=== PATIENT | male | born 1995 | race African-American/Black ===

== ENCOUNTER 2017-01-07 03:01 | Emergency (ER) | payer MEDICAID ==
[~2017-01-07] VITALS: Ht 175.3 cm; Wt 95.3 kg
[2017-01-07] MEDS ORDERED: IBUPROFEN600 MG ORAL (03:31)
[2017-01-07] MEDS ORDERED: GABAPENTIN100 MG ORAL (03:31)
[2017-01-07] MEDS ORDERED: PERCOCET 10-321 EACH ORAL (03:31)
[2017-01-07] MEDS ORDERED: TYLENOL ARTHRITIS PO (03:31)
[2017-01-07] MEDS ORDERED: NAPROSYN500 M1 ORAL (03:31)
[2017-01-07] MEDS ORDERED: TRAMADOL HCL50 MG ORAL (03:31)
[2017-01-07] MEDS ORDERED: TORADOL60 MG/2 ML IM (03:31)
[2017-01-07] MEDS ORDERED: CYCLOBENZAPRINE10 MG ORAL (03:31)
[2017-01-07] MEDS ORDERED: NORCO 5-325 TA1 EACH ORAL (03:31)
[2017-01-07] MEDS ORDERED: ROBAXIN-750750 MG PO (03:31)
[2017-01-07] MEDS ORDERED: PROAIR HFA8.5 GM INH (03:31)
[2017-01-07] MEDS ORDERED: Albuterol ud Inhalation HHN ONE (03:45)
[2017-01-07] MEDS ORDERED: Ipratropium 0.02% Inh Soln 2.5ml UD HHN ONE (03:45)
[2017-01-07] MEDS ORDERED: PredniSONE 20mg tab ORAL ONE (03:45)
[2017-01-07 04:15] VITALS: BP 121/71
[2017-01-07] MEDS ORDERED: PREDNISONE20 MG ORAL (04:28)
[2017-01-07] MEDS ORDERED: EYE DROP TEARS15 ML BOTH EYES (04:28)
[2017-01-07 04:35] VITALS: BP 121/71
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
== END 2017-01-07 04:35 | disposition home or self-care (01) ==
LOC: EMR 04:18
DX: T59.3X1A Toxic effect of lacrimogenic gas, accidental (unintentional), initial encounter (principal); J45.909 Unspecified asthma, uncomplicated; X58.XXXA Exposure to other specified factors, initial encounter; Y92.9 Unspecified place or not applicable; Y99.8 Other external cause status
CPT/HCPCS: 94640; 99284

== ENCOUNTER 2017-05-12 01:54 | Emergency (ER) | payer SELFPAY ==
[~2017-05-12] VITALS: Ht 175.3 cm; Wt 99.8 kg
[~2017-05-12 01:54] MED LIST: CYCLOBENZAPRINE10 MG ORAL; EYE DROP TEARS15 ML BOTH EYES; GABAPENTIN100 MG ORAL; IBUPROFEN600 MG ORAL; NAPROSYN500 M1 ORAL; NORCO 5-325 TA1 EACH ORAL; PERCOCET 10-321 EACH ORAL; PREDNISONE20 MG ORAL; PROAIR HFA8.5 GM INH; ROBAXIN-750750 MG PO; TORADOL60 MG/2 ML IM; TRAMADOL HCL50 MG ORAL; TYLENOL ARTHRITIS PO
[2017-05-12 02:06] VITALS: BP 164/89
[2017-05-12] MEDS ORDERED: IBUPROFEN600 MG ORAL (02:20)
--- NOTE | 2017-05-12 02:21 | Emergency Room Report ---
History of Present Illness General Chief Complaint: Chest Pain Source: Patient Present Illness HPI A 21-year-old male who presents with chief complaint of chest pain. He said his been ongoing for 3 weeks. Said he R. he saw Denies any fever chills denies any nausea vomiting. Nothing made it better nothing made it worse. Denies any other complaint. Allergies: Coded Allergies: No Known Allergies (Unverified , 01/07/17) Patient History Past Medical History: see triage record, old chart reviewed Past Surgical History: other Pertinent Family History: none Social History: Denies: smoking Immunizations: other Reviewed Nursing Documentation: PMH: Agreed, PSxH: Agreed Nursing Documentation-PMH Past Medical History: No History, Except For Hx Asthma: Yes Review of Systems Eye: Denies: blurred vision, eye pain ENT: Denies: ear pain, nose congestion, throat swelling Respiratory: Denies: cough, shortness of breath Cardiovascular: Reports: chest pain, Denies: palpitations Gastrointestinal: Denies: abdominal pain, diarrhea, nausea, vomiting Musculoskeletal: Denies: back pain, joint pain Skin: Denies: rash Neurological: Denies: headache, numbness Endocrine: Denies: increased thirst, increased urine Hematologic/Lymphatic: Denies: easy bruising All Other Systems: negative except mentioned in HPI Physical Exam Vital Signs Date Time Temp Pulse Resp B/P Pulse Ox O2 Delivery O2 Flow Rate FiO2 05/12/17 02:00 97.9 73 16 164/89 100 Room Air vitals unremarkable Sp02 EP Interpretation: reviewed, normal General Appearance: well appearing, no apparent distress, alert, other - Patient is sitting laughing And talking on phone. Head: normocephalic, atraumatic Eyes: bilateral eye EOMI, bilateral eye PERRL ENT: hearing grossly normal, normal pharynx Neck: full range of motion, supple, no meningismus Respiratory: chest non-tender, lungs clear, normal breath sounds Cardiovascular #1: regular rate, rhythm, no murmur Gastrointestinal: normal bowel sounds, non tender, no mass, no organomegaly, no bruit, non-distended Musculoskeletal: back normal, gait/station normal, normal range of motion Psychiatric: mood/affect normal Skin: warm/dry Medical Decision Making Diagnostic Impression: Primary Impression: Chest pain Qualified Codes: R07.9 - Chest pain, unspecified ER Course present with noncardiac chest pain. I see no evidence of ACS, PE, dissection, pneumonia to name a few. Clinically he stable. I see no need for EKG. Last Vital Signs Date Time Temp Pulse Resp B/P Pulse Ox O2 Delivery O2 Flow Rate FiO2 05/12/17 02:00 97.9 73 16 164/89 100 Room Air Status: unchanged Disposition: HOME, SELF-CARE Condition: Stable Scripts Ibuprofen* (MOTRIN*) 600 Mg Tablet 600 MG ORAL Q8H Y for For Pain, #30 TAB 0 Refills Prov: DAYSI RIVAS M.D. 05/12/17 Patient Instructions: Nonspecific Chest Pain Additional Instructions: Followup with your Dr. in 7 days. Return if symptom worsen. DAYSI RIVAS M.D. May 12, 2017 02:21
[2017-05-12 02:37] VITALS: BP 164/89
== END 2017-05-12 02:37 | disposition home or self-care (01) ==
LOC: EMR 02:34
DX: R07.89 Other chest pain (principal); J45.909 Unspecified asthma, uncomplicated
CPT/HCPCS: 99283

== ENCOUNTER 2018-06-18 15:35 | Inpatient (IN) | payer MEDICAID, OTHER ==
[~2018-06-18] VITALS: Ht 177.8 cm; Wt 97.7 kg
[2018-06-18 16:15] VITALS: BP 128/71
[2018-06-18] MEDS ORDERED: Sodium Chloride 500ML 500 ML IV ONE (16:16)
[2018-06-18] MEDS ORDERED: Morphine Sulfate 4mg/ml Inj (IV USE ONLY) IVP ONE (16:30)
[2018-06-18 18:00] VITALS: BP 144/83
[2018-06-18 18:13] LABS: BASOPHILS % (AUTO) 0.6 % (0.0-2.0); EOSINOPHILS % (AUTO) 1.8 % (0.0-3.0); HEMATOCRIT 33.4 % (42.0-52.0); LYMPHOCYTES % (AUTO) 30.3 % (20.0-45.0); MEAN CORPUSCULAR VOLUME 77 FL (80-99); MONOCYTES % (AUTO) 12.5 % (1.0-10.0); NEUTROPHILS % (AUTO) 54.9 % (45.0-75.0); PLATELET COUNT 284 K/UL (150-450); RED BLOOD COUNT 4.35 M/UL (4.70-6.10); RED CELL DISTRIBUTION WIDTH 17.3 % (11.6-14.8); WHITE BLOOD COUNT 4.1 K/UL (4.8-10.8)
[2018-06-18 18:35] LABS: ANION GAP 8 mmol/L (5-15); BLOOD UREA NITROGEN 12 mg/dL (7-18); CALCIUM 8.9 MG/DL (8.5-10.1); CARBON DIOXIDE 28 MMOL/L (21-32); CHLORIDE 106 MMOL/L (98-107); POTASSIUM 3.5 MMOL/L (3.5-5.1); SODIUM 142 MMOL/L (136-145)
[2018-06-18 18:50] LABS: ALANINE AMINOTRANSFERASE 157 U/L (12-78); ALBUMIN 3.5 G/DL (3.4-5.0); ALKALINE PHOSPHATASE 82 U/L (46-116); ASPARTATE AMINO TRANSFERASE 86 U/L (15-37); BILIRUBIN,TOTAL 0.3 MG/DL (0.2-1.0); CKMB < 0.5 NG/ML (0.0-3.6); CREATINE KINASE 136 U/L (26-308)
[2018-06-18] MEDS ORDERED: HUMIRA40 MG/0.2 SUBQ (19:23)
[2018-06-18] MEDS ORDERED: DIPHENHYDRAMINE25 M1 ORAL (19:23)
[2018-06-18] MEDS ORDERED: MORPHINE IR15 MG ORAL (19:23)
[2018-06-18] MEDS ORDERED: COLCRYS0.6 M1 PO (19:23)
[2018-06-18] MEDS ORDERED: DIAZEPAM5 MG ORAL (19:23)
[2018-06-18] MEDS ORDERED: ZETIA10 MG ORAL (19:23)
[2018-06-18] MEDS ORDERED: ZOFRAN4 M3 ORAL (19:23)
[2018-06-18] MEDS ORDERED: PREDNISONE50 MG ORAL (19:23)
[2018-06-18] MEDS ORDERED: WARFARIN SODIUM4 MG ORAL (19:23)
[2018-06-18] MEDS ORDERED: METOPROLOL TART25 MG ORAL (19:23)
[2018-06-18] MEDS ORDERED: RANEXA500 MG ORAL (19:23)
[2018-06-18] MEDS ORDERED: CYCLOBENZAPRINE10 MG ORAL (19:23)
[2018-06-18] MEDS ORDERED: GABAPENTIN800 MG ORAL (19:23)
[2018-06-18] MEDS ORDERED: PROAIR HFA8.5 GM INH (19:23)
[2018-06-18] MEDS ORDERED: TRAZODONE HCL50 MG ORAL (19:23)
[2018-06-18] MEDS ORDERED: MELOXICAM15 MG PO (19:23)
[2018-06-18] MEDS ORDERED: FERROUS SULFAT325 MG ORAL (19:23)
[2018-06-18] MEDS ORDERED: PANTOPRAZOLE SO40 MG ORAL (19:23)
[2018-06-18] MEDS ORDERED: DOCUSATE SODIU100 MG ORAL (19:23)
[2018-06-18] MEDS ORDERED: NOVOLIN R100 UNIT/1 SUBQ (19:23)
[2018-06-18] MEDS ORDERED: DEPAKOTE ER500 MG ORAL (19:23)
[2018-06-18] MEDS ORDERED: CARAFATE1 G1 ORAL (19:23)
[2018-06-18] MEDS ORDERED: POLYETHYLENE GL17 GM ORAL (19:23)
[2018-06-18] MEDS ORDERED: ZYPREXA2.5 MG ORAL (19:23)
[2018-06-18] MEDS ORDERED: ATORVASTATIN CA40 MG ORAL (19:23)
[2018-06-18] MEDS ORDERED: ACETAMINOPHEN-1 EAC1 ORAL (19:23)
[2018-06-18] MEDS ORDERED: METFORMIN HCL500 M1 ORAL (19:23)
[2018-06-18] MEDS ORDERED: Miralax 17gm pkt ORAL PRN (19:30)
[2018-06-18] MEDS ORDERED: Nitroglycerin Subl 0.4mg tab SL PRN (19:30)
[2018-06-18] MEDS ORDERED: Enalaprilat 2.5mg/2ml Inj IV PRN (19:30)
[2018-06-18] MEDS ORDERED: TraZODone 50mg tab ORAL PRN (19:30)
[2018-06-18] MEDS ORDERED: Albuterol/Ipratropium 3ml neb HHN PRN (19:30)
[2018-06-18] MEDS ORDERED: OLANZapine 2.5mg tab ORAL PRN ×2 (19:30→19:40)
[2018-06-18] MEDS ORDERED: Ketorolac 30mg Inj IV PRN (19:30)
[2018-06-18] MEDS ORDERED: dilTIAZem HCl 25mg/5ml Inj IV PRN (19:30)
[2018-06-18 19:50] VITALS: BP 140/82
[2018-06-18 20:38] VITALS: BP 146/106
--- NOTE | 2018-06-18 20:42 | Emergency Room Report ---
History of Present Illness General Chief Complaint: Chest Pain Source: Patient Present Illness HPI 35-year-old male presents ED complaining of chest pain. Started this morning. Left-sided, throbbing, nonradiating. Denies shortness of breath. States he's been coughing up blood. Has blood in his stool. Notes history of PE and DVT. History of NSTEMI. On Coumadin. Is visiting from [place]. No other aggravating relieving factors. Denies any other associated symptoms Allergies: Coded Allergies: IODINATED CONTRAST- ORAL AND IV DYE (Verified Allergy, Unknown, 06/18/18) Patient History Past Medical History: DM, HTN, asthma Past Surgical History: none Pertinent Family History: none Social History: Denies: smoking, alcohol use, drug use Immunizations: UTD Reviewed Nursing Documentation: PMH: Agreed; PSxH: Agreed Nursing Documentation-PMH Hx Hypertension: Yes Hx Asthma: Yes Hx Diabetes: Yes Review of Systems All Other Systems: negative except mentioned in HPI Physical Exam Vital Signs Date Time Temp Pulse Resp B/P (MAP) Pulse Ox O2 Delivery O2 Flow Rate FiO2 06/18/18 15:45 98.7 82 18 121/63 100 Room Air 98.8 Sp02 EP Interpretation: reviewed, normal General Appearance: no apparent distress, alert, GCS 15, non-toxic Head: normocephalic, atraumatic Eyes: bilateral eye normal inspection, bilateral eye PERRL ENT: hearing grossly normal, normal pharynx, no angioedema, normal voice Neck: full range of motion, supple/symm/no masses Respiratory: chest non-tender, lungs clear, normal breath sounds, speaking full sentences Cardiovascular #1: regular rate, rhythm, no edema Cardiovascular #2: 2+ carotid (R), 2+ carotid (L), 2+ radial (R), 2+ radial (L) , 2+ dorsalis pedis (R), 2+ dorsalis pedis (L) Gastrointestinal: normal bowel sounds, non tender, soft, non-distended, no guarding, no rebound Rectal: deferred Genitourinary: normal inspection, no CVA tenderness Musculoskeletal: back normal, gait/station normal, normal range of motion, non- tender Neurologic: alert, oriented x3, responsive, motor strength/tone normal, sensory intact, speech normal Psychiatric: judgement/insight normal, memory normal, mood/affect normal, no suicidal/homicidal ideation Reflexes: 3+ bicep (R), 3+ bicep (L), 3+ tricep (R), 3+ tricep (L), 3+ knee (R) , 3+ knee (L) Skin: normal color, no rash, warm/dry, well hydrated Lymphatic: no adenopathy Medical Decision Making Diagnostic Impression: Primary Impression: ACS (acute coronary syndrome) Additional Impressions: Hemoptysis LGI bleed ER Course Hospital Course 35-year-old male presents ED complaining of chest pain. h/o DVT. h/o PE Differential diagnoses include: PA/unstable angina, contusion, muscle strain, PTX, rib fracture Clinical course Patient placed on stretcher. on want ad receiver. After initial history and physical I ordered labs, EKG, chest x-ray, morphine labs reviewed- no leukocytosis, hb/hct stable, electrolytes ok, ddimer ok, trop negative, coags ok EKG - NSR, no acute ischemic changes interpreted by me Chest x-ray- no acute process Given presentation and significant cardiac risk factors patient will be admitted Case discussed with Dr. Fisher and he agreed to accept the patient to his service for further care and support I. I feel this is a highly complex case requiring extensive working including EKG/Rhythm strip, Xray/CT/US, Blood/urine lab work, repeat exams while in ED, and administration of strong opiates/narcotics for pain control, admission to hospital or close patient follow up. Diagnosis - ACS, hemoptysis, LGIB admitted to telemetry in serious condition Labs Test 06/18/18 17:50 White Blood Count 4.1 K/UL (4.8-10.8) Red Blood Count 4.35 M/UL (4.70-6.10) Hemoglobin 11.0 G/DL (14.2-18.0) Hematocrit 33.4 % (42.0-52.0) Mean Corpuscular Volume 77 FL (80-99) Mean Corpuscular Hemoglobin 25.2 PG (27.0-31.0) Mean Corpuscular Hemoglobin Concent 32.8 G/DL (32.0-36.0) Red Cell Distribution Width 17.3 % (11.6-14.8) Platelet Count 284 K/UL (150-450) Mean Platelet Volume 5.6 FL (6.5-10.1) Neutrophils (%) (Auto) 54.9 % (45.0-75.0) Lymphocytes (%) (Auto) 30.3 % (20.0-45.0) Monocytes (%) (Auto) 12.5 % (1.0-10.0) Eosinophils (%) (Auto) 1.8 % (0.0-3.0) Basophils (%) (Auto) 0.6 % (0.0-2.0) Prothrombin Time 10.7 SEC (9.30-11.50) Prothromb Time International Ratio 1.0 (0.9-1.1) Activated Partial Thromboplast Time 26 SEC (23-33) D-Dimer 0.35 mg/L FEU (0.00-0.49) Sodium Level 142 MMOL/L (136-145) Potassium Level 3.5 MMOL/L (3.5-5.1) Chloride Level 106 MMOL/L (98-107) Carbon Dioxide Level 28 MMOL/L (21-32) Anion Gap 8 mmol/L (5-15) Blood Urea Nitrogen 12 mg/dL (7-18) Creatinine 1.0 MG/DL (0.55-1.30) Estimat Glomerular Filtration Rate > 60 mL/min (>60) Glucose Level 128 MG/DL (74-106) Calcium Level 8.9 MG/DL (8.5-10.1) Total Bilirubin 0.3 MG/DL (0.2-1.0) Aspartate Amino Transf (AST/SGOT) 86 U/L (15-37) Alanine Aminotransferase (ALT/SGPT) 157 U/L (12-78) Alkaline Phosphatase 82 U/L (46-116) Total Creatine Kinase 136 U/L (26-308) Creatine Kinase MB < 0.5 NG/ML (0.0-3.6) Creatine Kinase MB Relative Index 0.3 Troponin I 0.000 ng/mL (0.000-0.056) Pro-B-Type Natriuretic Peptide 35 pg/mL (0-125) Total Protein 7.1 G/DL (6.4-8.2) Albumin 3.5 G/DL (3.4-5.0) Globulin 3.6 g/dL Albumin/Globulin Ratio 1.0 (1.0-2.7) EKG Diagnostic Results Rate: normal Rhythm: NSR ST Segments: no acute changes ASA given to the pt in ED: Yes Rhythm Strip Diag. Results EP Interpretation: yes Rhythm: NSR, no PVC's, no ectopy Chest X-Ray Diagnostic Results Chest X-Ray Diagnostic Results : Chest X-Ray Ordered: Yes # of Views/Limited/Complete: 1 View Indication: Chest Pain EP Interpretation: Yes Interpretation: no consolidation, no effusion, no pneumothorax, no acute cardiopulmonary disease Impression: No acute disease Electronically Signed by: Electronically signed by Felipe Miller MD Last Vital Signs Date Time Temp Pulse Resp B/P (MAP) Pulse Ox O2 Delivery O2 Flow Rate FiO2 06/18/18 18:00 98.8 99 20 144/83 100 Room Air 98.8 Status: improved Disposition: ADMITTED INPATIENT Condition: Serious Referrals: NON PHYSICIAN (PCP) Felipe Miller MD Jun 18, 2018 20:42
[2018-06-18] MEDS: NovoLOG Insulin Flexpen SUBQ SCH (20:47)
[2018-06-18 21:00] VITALS: BP 146/106
[2018-06-18] MEDS ORDERED: Depakote ER 500mg tab ORAL SCH (21:00)
[2018-06-18] MEDS: Morphine Sulfate 2mg/ml Inj IVP PRN (21:49)
[2018-06-18] MEDS: Heparin 5000 units/ml inj SUBQ SCH (22:00)
[2018-06-19 00:10] VITALS: BP 142/93
[2018-06-19 04:00] VITALS: BP 107/55
[2018-06-19] MEDS: Morphine Sulfate 2mg/ml Inj IVP PRN ×2 (04:28→08:51)
[2018-06-19] MEDS: NovoLOG Insulin Flexpen SUBQ SCH ×2 (06:07→11:34)
[2018-06-19] MEDS: Heparin 5000 units/ml inj SUBQ SCH (06:25)
[2018-06-19 07:37] LABS: HEMATOCRIT 34.4 % (42.0-52.0); MEAN CORPUSCULAR VOLUME 77 FL (80-99); PLATELET COUNT 256 K/UL (150-450); RED BLOOD COUNT 4.47 M/UL (4.70-6.10); RED CELL DISTRIBUTION WIDTH 16.9 % (11.6-14.8); WHITE BLOOD COUNT 3.2 K/UL (4.8-10.8)
[2018-06-19 07:46] LABS: INR 1.1 (0.9-1.1)
[2018-06-19 08:11] LABS: CHOLESTEROL 112 MG/DL (< 200); HDL CHOLESTEROL 34 MG/DL (40-60); TRIGLYCERIDES 68 MG/DL (30-150)
--- NOTE | 2018-06-19 08:30 | Diagnostic Imaging Report ---
Indication: Chest pain Technique: One view of the chest Comparison: none Findings: The heart is upper limits normal in size. Lungs and pleural spaces are clear. Impression: No acute process
[2018-06-19 08:47] VITALS: BP 133/80
[2018-06-19 08:48] VITALS: BP 133/80
[2018-06-19] MEDS: Cyclobenzaprine 10mg Tab ORAL SCH ×2 (08:50→09:20)
[2018-06-19] MEDS ORDERED: Sucralfate 1gm tab ORAL SCH (09:00)
[2018-06-19] MEDS ORDERED: Aspirin Baby 81mg ORAL SCH (09:00)
[2018-06-19] MEDS ORDERED: Atorvastatin 20mg tab ORAL SCH (09:00)
[2018-06-19] MEDS ORDERED: Warfarin Sodium 4mg ORAL SCH (09:00)
[2018-06-19] MEDS ORDERED: Metoprolol 25mg tab ORAL SCH (09:00)
[2018-06-19] MEDS ORDERED: Tylenol #3 tab (300mg/30mg) ORAL PRN (11:00)
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
[2018-06-19] MEDS ORDERED: LORazepam 1mg tab ORAL PRN (12:00)
--- NOTE | 2018-06-19 12:06 | Consultation ---
History of Present Illness General Date patient seen: Jun 19, 2018 Chief Complaint: Chest Pain Present Illness HPI 23 year old male with hx of ID, s/p angioplasty without Stent, on Coumadin for DVt, the pt has hx of bipolar d/o he is splitting staff. agitated. Allergies: Coded Allergies: IODINATED CONTRAST- ORAL AND IV DYE (Verified Allergy, Unknown, 06/18/18) Medication History Scheduled Adalimumab (Humira), 40 MG SUBQ Q14D, (Reported) Atorvastatin Calcium* (Atorvastatin Calcium*), 40 MG ORAL DAILY, (Reported) Colchicine (Colcrys), 0.6 MG PO TID, (Reported) Cyclobenzaprine Hcl* (Flexeril*), 10 MG ORAL THREE TIMES A DAY, (Reported) Ezetimibe (Zetia*), 10 MG ORAL DAILY, (Reported) Ferrous Sulfate* (Ferrous Sulfate*), 325 MG ORAL TWICE A DAY, (Reported) Gabapentin* (Gabapentin*), 800 MG ORAL BID, (Reported) Insulin Regular, Human* (Novolin R*), 0 SUBQ .SLIDING SCALE, (Reported) Meloxicam* (Meloxicam*), 15 MG PO BID, (Reported) Metformin Hcl* (Metformin Hcl*), 250 MG ORAL DAILY, (Reported) Metoprolol Tartrate* (Metoprolol Tartrate*), 25 MG ORAL BID, (Reported) Pantoprazole* (Pantoprazole*), 40 MG ORAL DAILY, (Reported) Prednisone* (Prednisone*), 50 MG ORAL BID, (Reported) Ranolazine* (Ranexa*), 500 MG ORAL EVERY 8 HOURS, (Reported) Sucralfate* (Carafate*), 1 GM ORAL BID, (Reported) Warfarin Sod* (Warfarin Sod*), 4 MG ORAL DAILY, (Reported) Scheduled PRN Acetaminophen With Codeine (T#3) (Tylenol #3 Tab*), 1 TAB ORAL Q6H PRN for Breakthrough Pain, (Reported) Albuterol Sulfate* (Proair Hfa*), 1 PUFF INH Q4HR PRN for Shortness of Breath, ( Reported) Diazepam* (Diazepam*), 5 MG ORAL Q8H PRN for ANXIETY, (Reported) Diphenhydramine Hcl* (Diphenhydramine Hcl*), 25 MG ORAL QHS PRN for INSOMNIA , ( Reported) Divalproex Sodium* (Depakote Er*), 500 MG ORAL QHS PRN for INSOMNIA, (Reported) Docusate Sodium* (Docusate Sodium*), 100 MG ORAL TWICE A DAY PRN for Constipation, (Reported) Morphine HCl (Morphine Sulfate ER), 15 MG ORAL Q4HR PRN for For Pain, (Reported) Olanzapine* (Zyprexa*), 2.5 MG ORAL QHS PRN for INSOMNIA, (Reported) Ondansetron* (Zofran*), 4 MG ORAL Q6H PRN for Nausea & Vomiting, (Reported) Polyethylene Glycol 3350* (Polyethylene Glycol 3350*), 17 GM ORAL DAILY PRN for Constipation, (Reported) Trazodone Hcl* (Desyrel*), 50 MG ORAL BEDTIME PRN for INSOMNIA, (Reported) Patient History Healthcare decision maker Resuscitation status Full Code Advanced Directive on File Physical Exam Last 24 Hour Vital Signs Date Time Temp Pulse Resp B/P (MAP) Pulse Ox O2 Delivery O2 Flow Rate FiO2 06/19/18 09:51 Room Air 06/19/18 09:50 98.0 06/19/18 09:47 21 06/19/18 09:20 98.0 06/19/18 09:20 98.0 06/19/18 08:51 98.0 06/19/18 08:50 98.0 06/19/18 08:48 104 133/80 06/19/18 08:47 98.0 104 18 133/80 (97) 96 98.0 06/19/18 05:30 21 06/19/18 04:00 30 06/19/18 04:00 73 06/19/18 04:00 97.5 74 20 107/55 (72) 98 97.5 06/19/18 03:30 80 18 97 Facial 30 06/19/18 00:30 84 20 98 Facial 30 06/19/18 00:10 97.9 114 20 142/93 (109) 98 97.9 06/19/18 00:00 30 06/18/18 22:20 Room Air 06/18/18 21:00 97.7 101 23 146/106 (119) 96 97.7 06/18/18 20:38 97.7 127 18 146/106 (119) 98 97.7 06/18/18 20:21 107 06/18/18 19:50 99.1 99 19 140/82 100 Room Air 99.1 06/18/18 19:50 99.1 99 19 140/82 100 06/18/18 18:00 98.8 99 20 144/83 100 Room Air 98.8 06/18/18 16:15 96 19 Room Air 06/18/18 16:15 97.6 96 19 128/71 100 Room Air 97.6 06/18/18 15:45 98.7 82 18 121/63 100 Room Air 98.8 Intake and Output 06/18/18 06/19/18 19:00 07:00 Intake Total 0 ml 780 ml Balance 0 ml 780 ml Intake Oral 0 ml 780 ml # Voids 2 Laboratory Tests Test 06/18/18 17:50 06/19/18 07:10 White Blood Count 4.1 K/UL (4.8-10.8) L 3.2 K/UL (4.8-10.8) L Red Blood Count 4.35 M/UL (4.70-6.10) L 4.47 M/UL (4.70-6.10) L Hemoglobin 11.0 G/DL (14.2-18.0) L 11.0 G/DL (14.2-18.0) L Hematocrit 33.4 % (42.0-52.0) L 34.4 % (42.0-52.0) L Mean Corpuscular Volume 77 FL (80-99) L 77 FL (80-99) L Mean Corpuscular Hemoglobin 25.2 PG (27.0-31.0) L 24.5 PG (27.0-31.0) L Mean Corpuscular Hemoglobin Concent 32.8 G/DL (32.0-36.0) 31.9 G/DL (32.0-36.0) L Red Cell Distribution Width 17.3 % (11.6-14.8) H 16.9 % (11.6-14.8) H Platelet Count 284 K/UL (150-450) 256 K/UL (150-450) Mean Platelet Volume 5.6 FL (6.5-10.1) L 5.2 FL (6.5-10.1) L Neutrophils (%) (Auto) 54.9 % (45.0-75.0) % (45.0-75.0) Lymphocytes (%) (Auto) 30.3 % (20.0-45.0) % (20.0-45.0) Monocytes (%) (Auto) 12.5 % (1.0-10.0) H % (1.0-10.0) Eosinophils (%) (Auto) 1.8 % (0.0-3.0) % (0.0-3.0) Basophils (%) (Auto) 0.6 % (0.0-2.0) % (0.0-2.0) Prothrombin Time 10.7 SEC (9.30-11.50) 11.1 SEC (9.30-11.50) Prothromb Time International Ratio 1.0 (0.9-1.1) 1.1 (0.9-1.1) Activated Partial Thromboplast Time 26 SEC (23-33) 31 SEC (23-33) D-Dimer 0.35 mg/L FEU (0.00-0.49) Sodium Level 142 MMOL/L (136-145) Potassium Level 3.5 MMOL/L (3.5-5.1) Chloride Level 106 MMOL/L (98-107) Carbon Dioxide Level 28 MMOL/L (21-32) Anion Gap 8 mmol/L (5-15) Blood Urea Nitrogen 12 mg/dL (7-18) Creatinine 1.0 MG/DL (0.55-1.30) Estimat Glomerular Filtration Rate > 60 mL/min (>60) Glucose Level 128 MG/DL (74-106) H Calcium Level 8.9 MG/DL (8.5-10.1) Total Bilirubin 0.3 MG/DL (0.2-1.0) Aspartate Amino Transf (AST/SGOT) 86 U/L (15-37) H Alanine Aminotransferase (ALT/SGPT) 157 U/L (12-78) H Alkaline Phosphatase 82 U/L (46-116) Total Creatine Kinase 136 U/L (26-308) Creatine Kinase MB < 0.5 NG/ML (0.0-3.6) Creatine Kinase MB Relative Index 0.3 Troponin I 0.000 ng/mL (0.000-0.056) 0.007 ng/mL (0.000-0.056) Pro-B-Type Natriuretic Peptide 35 pg/mL (0-125) Total Protein 7.1 G/DL (6.4-8.2) Albumin 3.5 G/DL (3.4-5.0) Globulin 3.6 g/dL Albumin/Globulin Ratio 1.0 (1.0-2.7) Differential Total Cells Counted 100 Neutrophils % (Manual) 42 % (45-75) L Lymphocytes % (Manual) 38 % (20-45) Monocytes % (Manual) 18 % (1-10) H Eosinophils % (Manual) 2 % (0-3) Basophils % (Manual) 0 % (0-2) Band Neutrophils 0 % (0-8) Platelet Estimate Adequate Platelet Morphology Normal Anisocytosis 1+ Microcytosis 1+ C-Reactive Protein, Quantitative 3.5 mg/dL (0.00-0.90) H Triglycerides Level 68 MG/DL (30-150) Cholesterol Level 112 MG/DL (< 200) LDL Cholesterol 62 mg/dL (<100) HDL Cholesterol 34 MG/DL (40-60) L Cholesterol/HDL Ratio 3.3 (3.3-4.4) Thyroid Stimulating Hormone (TSH) 0.604 uiU/mL (0.358-3.740) Height (Feet): 5 Height (Inches): 10.00 Weight (Pounds): 215 Medications Current Medications Medications (Trade) Dose Ordered Sig/Gael Route PRN Reason Start Time Stop Time Status Last Admin Dose Admin Acetaminophen (Tylenol) 650 mg Q4H PRN ORAL FEVER 06/18/18 19:30 07/18/18 19:29 Acetaminophen/ Codeine Phosphate (Tylenol #3) 1 tab Q6H PRN ORAL Breakthrough Pain 06/19/18 11:00 06/26/18 10:59 Albuterol/ Ipratropium (Albuterol/ Ipratropium) 3 ml Q4H PRN HHN Shortness of Breath 06/18/18 19:30 06/23/18 19:29 Atorvastatin Calcium (Lipitor) 40 mg DAILY ORAL 06/19/18 09:00 07/19/18 08:59 06/19/18 08:48 Colchicine (Colchicine) 0.6 mg TID ORAL 06/19/18 09:00 07/19/18 08:59 06/19/18 08:48 Cyclobenzaprine HCl (Flexeril) 10 mg THREE TIMES A DAY ORAL 06/19/18 09:00 07/19/18 08:59 06/19/18 09:20 Dextrose (Dextrose 50%) 25 ml PRN IV Hypoglycemia 06/18/18 19:45 07/18/18 19:44 Dextrose (Dextrose 50%) 50 ml PRN IV hypoglycemia 06/18/18 19:45 07/18/18 19:44 Diltiazem HCl (Cardizem) 10 mg Q1H PRN IV heart rate more than 120, 06/18/18 19:30 07/18/18 19:29 Divalproex Sodium (Depakote ER) 500 mg QHS ORAL 06/18/18 21:00 07/18/18 20:59 06/18/18 21:48 Enalaprilat (Vasotec) 2.5 mg Q6H PRN IV sbp more than 160 06/18/18 19:30 07/18/18 19:29 EZETIMIBE (Zetia) 10 mg DAILY ORAL 06/19/18 09:00 07/19/18 08:59 06/19/18 08:49 Gabapentin (Neurontin) 800 mg BID ORAL 06/19/18 09:00 07/19/18 08:59 06/19/18 08:49 Insulin Aspart (NovoLOG) BEFORE MEALS AND HS SUBQ 06/18/18 21:00 07/18/18 20:59 06/19/18 11:34 Lorazepam (Ativan) 2 mg Q6H PRN ORAL For Anxiety 06/19/18 12:00 06/26/18 11:59 UNV Metoprolol Tartrate (Lopressor) 25 mg BID ORAL 06/19/18 09:00 07/19/18 08:59 06/19/18 08:48 Nitroglycerin (Ntg) 0.4 mg Q5M PRN SL Prn Chest Pain 06/18/18 19:30 07/18/18 19:29 Olanzapine (ZyPREXA) 2.5 mg QHS PRN ORAL INSOMNIA 06/18/18 19:40 07/18/18 19:29 Ondansetron HCl (Zofran) 4 mg Q6H PRN IVP Nausea & Vomiting 06/18/18 19:30 07/18/18 19:29 06/19/18 04:28 Pantoprazole (Protonix) 40 mg DAILY ORAL 06/19/18 09:00 07/19/18 08:59 06/19/18 08:48 Polyethylene Glycol (Miralax) 17 gm DAILYPRN PRN ORAL Constipation 06/18/18 19:30 07/18/18 19:29 Sucralfate (Carafate) 1 gm BID ORAL 06/19/18 09:00 07/19/18 08:59 06/19/18 08:49 Temazepam (Restoril) 15 mg HSPRN PRN ORAL Insomnia 06/18/18 19:41 06/25/18 19:29 Trazodone HCl (Desyrel) 50 mg BEDTIME PRN ORAL INSOMNIA 06/18/18 19:30 07/18/18 19:29 Ginger Hernandez MD Jun 19, 2018 12:06
[2018-06-19] MEDS ORDERED: Depakote ER 500mg tab ORAL PRN (12:15)
--- NOTE | 2018-06-19 14:19 | GI Initial Consult Note ---
History of Present Illness General Date patient seen: Jun 19, 2018 Time patient seen: 14:00 Reason for Hospitalization: Chest Pain Referring physician: CHRISS CARTER Reason for Consultation: GI BLEED Present Illness HPI 35-year-old male presents ED complaining of chest pain. Started this morning. Left-sided, throbbing, nonradiating. Denies shortness of breath. States he's been coughing up blood. Has blood in his stool. Notes history of PE and DVT. History of NSTEMI. On Coumadin. Is visiting from [place]. No other aggravating relieving factors. Denies any other associated symptoms GI consulted for GI bleed. Pt was seen, awake A&Ox4 NAD ambulating with no active s/sx of N/V/D. States he has had multiple episodes of bloody stools in which he showed me multiple pictures on his phone. Stated he had an episode of hemoptysis and hematemesis as well. Denied any diarrhea. Prior GI history of GERD, multiple duodenal ulcers, ulcerative colitis. Last EGD/colonoscopy was approximately 2 years ago. Presents today with anemia and elevated CRP. Home Meds Active Scripts Acetaminophen* (ACETAMINOPHEN 325MG TABLET*) 325 Mg Tablet, 650 MG ORAL Q4H PRN for 30 Days, TAB Prov:Madan Momin MD 06/19/18 Reported Medications Warfarin Sod* (WARFARIN SOD*) 4 Mg Tablet, 4 MG ORAL DAILY, TAB 0 Refills 06/18/18 Sucralfate* (CARAFATE*) 1 Gm Tablet, 1 GM ORAL BID, TAB 06/18/18 Ranolazine* (RANEXA*) 500 Mg Tab.er.12h, 500 MG ORAL EVERY 8 HOURS, #60 TAB 0 Refills 06/18/18 Prednisone* (PREDNISONE*) 50 Mg Tablet, 50 MG ORAL BID, #10 TAB 0 Refills 06/18/18 Polyethylene Glycol 3350* (POLYETHYLENE GLYCOL 3350*) 17 Gm Powd.pack, 17 GM ORAL DAILY PRN for Constipation, PACKET 06/18/18 Pantoprazole* (PANTOPRAZOLE*) 40 Mg Tablet.dr, 40 MG ORAL DAILY, TAB 06/18/18 Ondansetron* (ZOFRAN*) 4 Mg Tablet, 4 MG ORAL Q6H PRN for Nausea & Vomiting, TAB 06/18/18 Trazodone Hcl* (DESYREL*) 50 Mg Tablet, 50 MG ORAL BEDTIME PRN for INSOMNIA, TAB 06/18/18 Olanzapine* (ZYPREXA*) 2.5 Mg Tablet, 2.5 MG ORAL QHS PRN for INSOMNIA, TAB 0 Refills 06/18/18 Morphine HCl (Morphine Sulfate ER) 15 Mg Tablet.er, 15 MG ORAL Q4HR PRN for For Pain, TAB 06/18/18 Metoprolol Tartrate* (METOPROLOL TARTRATE*) 25 Mg Tablet, 25 MG ORAL BID, TAB 06/18/18 Metformin Hcl* (METFORMIN HCL*) 500 Mg Tablet, 250 MG ORAL DAILY, TAB 06/18/18 Meloxicam* (MELOXICAM*) 15 Mg Tablet, 15 MG PO BID, TAB 06/18/18 Insulin Regular, Human* (NOVOLIN R*) 100 Unit/1 Ml Vial, 0 SUBQ .SLIDING SCALE, UNITS 06/18/18 Gabapentin* (GABAPENTIN*) 800 Mg Tablet, 800 MG ORAL BID, TAB 06/18/18 Ferrous Sulfate* (FERROUS SULFATE*) 325 Mg Tablet, 325 MG ORAL TWICE A DAY, #60 TAB 0 Refills 06/18/18 Ezetimibe (ZETIA*) 10 Mg Tablet, 10 MG ORAL DAILY, TAB 06/18/18 Docusate Sodium* (DOCUSATE SODIUM*) 100 Mg Capsule, 100 MG ORAL TWICE A DAY PRN for Constipation, CAP 06/18/18 Divalproex Sodium* (DEPAKOTE ER*) 500 Mg Tab.er.24h, 500 MG ORAL QHS PRN for INSOMNIA, TAB 4TH CHOICE IF OLANZAPINE IS INEFFECTIVE 06/18/18 Diphenhydramine Hcl* (DIPHENHYDRAMINE HCL*) 25 Mg Capsule, 25 MG ORAL QHS PRN for INSOMNIA , #30 CAP 0 Refills 06/18/18 Diazepam* (DIAZEPAM*) 5 Mg Tablet, 5 MG ORAL Q8H PRN for ANXIETY, #30 TAB 0 Refills 06/18/18 Cyclobenzaprine Hcl* (FLEXERIL*) 10 Mg Tablet, 10 MG ORAL THREE TIMES A DAY, TAB 06/18/18 Colchicine (COLCRYS) 0.6 Mg Tablet, 0.6 MG PO TID, TAB 06/18/18 Atorvastatin Calcium* (ATORVASTATIN CALCIUM*) 40 Mg Tablet, 40 MG ORAL DAILY, TAB 06/18/18 Albuterol Sulfate* (PROAIR HFA*) 8.5 Gm Hfa.aer.ad, 1 PUFF INH Q4HR PRN for Shortness of Breath, #8.5 GM 0 Refills 06/18/18 Adalimumab (HUMIRA) 40 Mg/0.8 Ml Pen.ij.kit, 40 MG SUBQ Q14D, KIT 06/18/18 Acetaminophen With Codeine (T#3) (TYLENOL #3 TAB*) Y Tab, 1 TAB ORAL Q6H PRN for Breakthrough Pain, TAB 06/18/18 Med list reviewed/reconciled: Yes Allergies: Coded Allergies: IODINATED CONTRAST- ORAL AND IV DYE (Verified Allergy, Unknown, 06/18/18) Patient History History Provided By: Patient, Medical Record PMH Narrative Past Medical History: DM, HTN, asthma Past Surgical History: none Pertinent Family History: none Social History: Denies: smoking, alcohol use, drug use Immunizations: UTD Reviewed Nursing Documentation: PMH: Agreed; PSxH: Agreed Nursing Documentation-PMH Hx Hypertension: Yes Hx Asthma: Yes Hx Diabetes: Yes Social History: Denies: smoking, alcohol use, drug use, other Review of Systems All Other Systems: negative except mentioned in HPI Physical Exam Vital Signs Date Time Temp Pulse Resp B/P (MAP) Pulse Ox O2 Delivery O2 Flow Rate FiO2 06/18/18 15:45 98.7 82 18 121/63 100 Room Air 98.8 06/19/18 00:00 30 Sp02 EP Interpretation: reviewed, normal Labs Laboratory Tests Test 06/18/18 17:50 06/19/18 07:10 White Blood Count 4.1 K/UL (4.8-10.8) L 3.2 K/UL (4.8-10.8) L Red Blood Count 4.35 M/UL (4.70-6.10) L 4.47 M/UL (4.70-6.10) L Hemoglobin 11.0 G/DL (14.2-18.0) L 11.0 G/DL (14.2-18.0) L Hematocrit 33.4 % (42.0-52.0) L 34.4 % (42.0-52.0) L Mean Corpuscular Volume 77 FL (80-99) L 77 FL (80-99) L Mean Corpuscular Hemoglobin 25.2 PG (27.0-31.0) L 24.5 PG (27.0-31.0) L Mean Corpuscular Hemoglobin Concent 32.8 G/DL (32.0-36.0) 31.9 G/DL (32.0-36.0) L Red Cell Distribution Width 17.3 % (11.6-14.8) H 16.9 % (11.6-14.8) H Platelet Count 284 K/UL (150-450) 256 K/UL (150-450) Mean Platelet Volume 5.6 FL (6.5-10.1) L 5.2 FL (6.5-10.1) L Neutrophils (%) (Auto) 54.9 % (45.0-75.0) % (45.0-75.0) Lymphocytes (%) (Auto) 30.3 % (20.0-45.0) % (20.0-45.0) Monocytes (%) (Auto) 12.5 % (1.0-10.0) H % (1.0-10.0) Eosinophils (%) (Auto) 1.8 % (0.0-3.0) % (0.0-3.0) Basophils (%) (Auto) 0.6 % (0.0-2.0) % (0.0-2.0) Prothrombin Time 10.7 SEC (9.30-11.50) 11.1 SEC (9.30-11.50) Prothromb Time International Ratio 1.0 (0.9-1.1) 1.1 (0.9-1.1) Activated Partial Thromboplast Time 26 SEC (23-33) 31 SEC (23-33) D-Dimer 0.35 mg/L FEU (0.00-0.49) Sodium Level 142 MMOL/L (136-145) Potassium Level 3.5 MMOL/L (3.5-5.1) Chloride Level 106 MMOL/L (98-107) Carbon Dioxide Level 28 MMOL/L (21-32) Anion Gap 8 mmol/L (5-15) Blood Urea Nitrogen 12 mg/dL (7-18) Creatinine 1.0 MG/DL (0.55-1.30) Estimat Glomerular Filtration Rate > 60 mL/min (>60) Glucose Level 128 MG/DL (74-106) H Calcium Level 8.9 MG/DL (8.5-10.1) Total Bilirubin 0.3 MG/DL (0.2-1.0) Aspartate Amino Transf (AST/SGOT) 86 U/L (15-37) H Alanine Aminotransferase (ALT/SGPT) 157 U/L (12-78) H Alkaline Phosphatase 82 U/L (46-116) Total Creatine Kinase 136 U/L (26-308) Creatine Kinase MB < 0.5 NG/ML (0.0-3.6) Creatine Kinase MB Relative Index 0.3 Troponin I 0.000 ng/mL (0.000-0.056) 0.007 ng/mL (0.000-0.056) Pro-B-Type Natriuretic Peptide 35 pg/mL (0-125) Total Protein 7.1 G/DL (6.4-8.2) Albumin 3.5 G/DL (3.4-5.0) Globulin 3.6 g/dL Albumin/Globulin Ratio 1.0 (1.0-2.7) Differential Total Cells Counted 100 Neutrophils % (Manual) 42 % (45-75) L Lymphocytes % (Manual) 38 % (20-45) Monocytes % (Manual) 18 % (1-10) H Eosinophils % (Manual) 2 % (0-3) Basophils % (Manual) 0 % (0-2) Band Neutrophils 0 % (0-8) Platelet Estimate Adequate Platelet Morphology Normal Anisocytosis 1+ Microcytosis 1+ C-Reactive Protein, Quantitative 3.5 mg/dL (0.00-0.90) H Triglycerides Level 68 MG/DL (30-150) Cholesterol Level 112 MG/DL (< 200) LDL Cholesterol 62 mg/dL (<100) HDL Cholesterol 34 MG/DL (40-60) L Cholesterol/HDL Ratio 3.3 (3.3-4.4) Thyroid Stimulating Hormone (TSH) 0.604 uiU/mL (0.358-3.740) General Appearance: well appearing, no apparent distress, alert Head: normocephalic EENT: PERRL/EOMI, normal ENT inspection Neck: supple Respiratory: normal breath sounds, no respiratory distress Cardiovascular: normal rate Gastrointestinal: normal inspection, non tender, soft, normal bowel sounds, non -distended Rectal: deferred Genitourinary: deferred Musculoskeletal: normal inspection, back normal Neurologic: normal inspection, alert, oriented x3, responsive Psychiatric: normal inspection, judgement/insight normal, memory normal Skin: normal inspection, normal color, no rash, warm/dry, palpation normal, well hydrated Lymphatic: normal inspection, no adenopathy Current Medications Current Medications Medications (Trade) Dose Ordered Sig/Gael Route PRN Reason Start Time Stop Time Status Last Admin Dose Admin Acetaminophen (Tylenol) 650 mg Q4H PRN ORAL FEVER 06/18/18 19:30 07/18/18 19:29 Acetaminophen/ Codeine Phosphate (Tylenol #3) 1 tab Q6H PRN ORAL Breakthrough Pain 06/19/18 11:00 06/26/18 10:59 Albuterol/ Ipratropium (Albuterol/ Ipratropium) 3 ml Q4H PRN HHN Shortness of Breath 06/18/18 19:30 06/23/18 19:29 Atorvastatin Calcium (Lipitor) 40 mg DAILY ORAL 06/19/18 09:00 07/19/18 08:59 06/19/18 08:48 Colchicine (Colchicine) 0.6 mg TID ORAL 06/19/18 09:00 07/19/18 08:59 06/19/18 08:48 Cyclobenzaprine HCl (Flexeril) 10 mg THREE TIMES A DAY ORAL 06/19/18 09:00 07/19/18 08:59 06/19/18 09:20 Dextrose (Dextrose 50%) 25 ml PRN IV Hypoglycemia 06/18/18 19:45 07/18/18 19:44 Dextrose (Dextrose 50%) 50 ml PRN IV hypoglycemia 06/18/18 19:45 07/18/18 19:44 Diltiazem HCl (Cardizem) 10 mg Q1H PRN IV heart rate more than 120, 06/18/18 19:30 07/18/18 19:29 Divalproex Sodium (Depakote ER) 500 mg HSPRN PRN ORAL agitation 06/19/18 12:15 07/19/18 12:14 Enalaprilat (Vasotec) 2.5 mg Q6H PRN IV sbp more than 160 06/18/18 19:30 07/18/18 19:29 EZETIMIBE (Zetia) 10 mg DAILY ORAL 06/19/18 09:00 07/19/18 08:59 06/19/18 08:49 Gabapentin (Neurontin) 800 mg BID ORAL 06/19/18 09:00 07/19/18 08:59 06/19/18 08:49 Insulin Aspart (NovoLOG) BEFORE MEALS AND HS SUBQ 06/18/18 21:00 07/18/18 20:59 06/19/18 11:34 Lorazepam (Ativan) 2 mg Q6H PRN ORAL For Anxiety 06/19/18 12:00 06/26/18 11:59 06/19/18 12:20 Metoprolol Tartrate (Lopressor) 25 mg BID ORAL 06/19/18 09:00 07/19/18 08:59 06/19/18 08:48 Nitroglycerin (Ntg) 0.4 mg Q5M PRN SL Prn Chest Pain 06/18/18 19:30 07/18/18 19:29 Olanzapine (ZyPREXA) 2.5 mg QHS PRN ORAL INSOMNIA 06/18/18 19:40 07/18/18 19:29 Ondansetron HCl (Zofran) 4 mg Q6H PRN IVP Nausea & Vomiting 06/18/18 19:30 07/18/18 19:29 06/19/18 04:28 Pantoprazole (Protonix) 40 mg DAILY ORAL 06/19/18 09:00 07/19/18 08:59 06/19/18 08:48 Polyethylene Glycol (Miralax) 17 gm DAILYPRN PRN ORAL Constipation 06/18/18 19:30 07/18/18 19:29 Sucralfate (Carafate) 1 gm BID ORAL 06/19/18 09:00 07/19/18 08:59 06/19/18 08:49 Temazepam (Restoril) 15 mg HSPRN PRN ORAL Insomnia 06/18/18 19:41 06/25/18 19:29 Trazodone HCl (Desyrel) 50 mg BEDTIME PRN ORAL INSOMNIA 06/18/18 19:30 07/18/18 19:29 GI: Plan Problems: (1) LGI bleed (2) Hemoptysis (3) personality disorder (4) Ulcerative colitis Plan CRP elevation EGD/colonoscopy to be tentively scheduled tomorrow pending cardiac clearance - will prep patient today, NPO @ MN. hold all blood thinners anemia work up OB stool r/o GI bleed monitor H&H, prn transfusions bowel regime ppi fu labs, ESR will follow with additional recs post procedure Discussed with Dr. Kingston. Thank you for this patient referral, we will follow. The patient was seen and examined at bedside and all new and available data was reviewed in the patients chart. I agree with the above findings, impression and plan. (Patient seen earlier today. Signature stamp does not reflect patient encounter time.). - MD Merline Glass [employer] SALES ASSISTANT Jun 19, 2018 14:19
[2018-06-19] MEDS ORDERED: ACETAMINOPHEN325 M1 ORAL (15:10)
[2018-06-19] MEDS ORDERED: Nulytely 4L ORAL SCH (16:00)
[2018-06-19] MEDS ORDERED: Bisacodyl EC 5mg tab ORAL SCH (16:00)
--- NOTE | 2018-06-20 06:52 | Discharge Summary ---
Discharge Summary Discharge Summary _ DATE OF ADMISSION: 06/18/2018 DATE OF DISCHARGE: 06/19/2018 CONSULTANTS: Dr. Madan Kingston [facility] HOSPITAL COURSE: Patient is a 23-year-old male, who presented to ED complaining of chest pain that started in the morning. Pain was located on the left side, described to be throbbing and nonradiating. He denied shortness of breath. He also stated that he had been coughing up blood and had blood in his stools. He claims to have history of PE and DVT, history of NSTEMI. He is visiting from [place]. He has medical history significant for diabetes mellitus and hypertension. On evaluation at ED, vital signs were stable. There was no leukocytosis, he had slight anemia with hemoglobin of 11, hematocrit 33. Initial troponin was negative. D-dimer was normal. EKG showed normal sinus rhythm with no ischemic changes. Chest x-ray showed no acute process. He was admitted for evaluation of chest pain, possible ACS, hemoptysis and lower GI bleed. He was admitted to telemetry. Cardiac troponins were monitored. He was seen by GI. He was placed on clear liquid diet. Patient was seen by psychiatrist. Patient has Bipolar disorder. He was ordered lorazepam prn. Patient was agitated and irritated. He was asking for IV morphine to be given every 4 hours, to wake him up even when he is asleep. He was seen by psychotherapist social worker to address social issues and assess for homelessness. He got agitated when insurance was being verified. He was yelling and was cursing. Hemoglobin levels were stable. Troponin 2 were negative. He was discharged home. FINAL DIAGNOSES: Chest pain, possible malingering Hemoptysis Lower GI bleed Bipolar disorder Cluster B personality disorder Ulcerative colitis DISPOSITION: Patient was discharged home. DISCHARGE MEDICATIONS: Refer to Discharge Medication List. DISCHARGE INSTRUCTIONS: Follow up with PCP in a week. I have been assigned to dictate discharge summary on this account, and I was not involved in the patient's management. Melsisa Sheppard NP Jun 20, 2018 06:52
--- NOTE | 2018-06-23 11:18 | Cardiology Report ---
APPROVED REPORT EXAM: Two-dimensional and M-mode echocardiogram with Doppler and color Doppler. INDICATION LV FUNCTION M-Mode DIMENSIONS IVSd1.8 (0.7-1.1cm)Left Atrium (MM)3.1 (1.6-4.0cm) LVDd4.7 (3.5-5.6cm)Aortic Root3.2 (2.0-3.7cm) PWd1.4 (0.7-1.1cm)Aortic Cusp Exc.1.7 (1.5-2.0cm) IVSs1.8 cm LVDs3.2 (2.5-4.0cm) PWs1.7 cm Technically difficult study due to pts resistance . Normal left ventricular chamber size, systolic function and wall motion . Left ventricular ejection fraction estimated to be 60-65%. No evidence of left ventricular hypertrophy . No evidence of pericardial effusion. All other cardiac chamber sizes are within normal limits. Focal aortic valve sclerosis with adequate cusp excursion. Thickened mitral valve leaflets with normal excursion. Mitral annulus and aortic root calcification. Pulmonic valve not well visualized. Normal tricuspid valve structure. IVC at normal size with physiologic collapse. A color flow and spectral Doppler study was performed and revealed: No aortic regurgitation. Trace mitral regurgitation. Mitral diastolic velocities suggest reduced left ventricular relaxation c/w mild LV diastolic dysfunction (Grade I ). Trace tricuspid regurgitation. Tricuspid systolic velocities suggests peak right ventricular systolic pressure of 17mmHg.
--- NOTE | 2018-06-24 01:35 | Diagnostic Imaging Report ---
APPROVED REPORT CPT Code: 55292 Present Symptoms BILATERAL: Imaging reveals a patent deep venous system bilaterally. There is no evidence of thrombus within the femoral, popliteal or tibial segments. The greater saphenous veins are also within normal limits. Doppler indicates normal spontaneous flow within these segments.
== END 2018-06-19 15:25 | disposition home or self-care (01) | DRG 198 ==
LOC: EDBD → EMR 16:38 → 2E 17:03 → EDBD 17:03 → MERGE 17:03 → EDBEDREQ 17:20
DX: R07.9 Chest pain, unspecified (principal); I25.10 Atherosclerotic heart disease of native coronary artery without angina pectoris; K51.90 Ulcerative colitis, unspecified, without complications; I25.2 Old myocardial infarction; K92.2 Gastrointestinal hemorrhage, unspecified; Z76.5 Malingerer [conscious simulation]; F31.9 Bipolar disorder, unspecified; F60.89 Other specific personality disorders; Z91.041 Radiographic dye allergy status; E11.9 Type 2 diabetes mellitus without complications; I10 Essential (primary) hypertension; J45.909 Unspecified asthma, uncomplicated; Z98.61 Coronary angioplasty status
CPT/HCPCS: 36415; 71045; 80053; 80061; 82550; 82553; 82962; 83880; 84443; 84484; 85007; 85025; 85379; 85610; 85730; 86140; 86850; 86900; 86901; 93306; 93970; 94660; 94664; 96374; 99285; J1815; J2405

== ENCOUNTER 2018-06-19 15:42 | Emergency (ER) | payer OTHER ==
[~2018-06-19] VITALS: Ht 177.8 cm; Wt 98.9 kg
[~2018-06-19 15:42] MED LIST changes: +ACETAMINOPHEN-1 EAC1 ORAL; +ACETAMINOPHEN325 M1 ORAL; +ATORVASTATIN CA40 MG ORAL; +CARAFATE1 G1 ORAL; +COLCRYS0.6 M1 PO; +DEPAKOTE ER500 MG ORAL; +DIAZEPAM5 MG ORAL; +DIPHENHYDRAMINE25 M1 ORAL; +DOCUSATE SODIU100 MG ORAL; +FERROUS SULFAT325 MG ORAL; +GABAPENTIN800 MG ORAL; +HUMIRA40 MG/0.2 SUBQ; +MELOXICAM15 MG PO; +METFORMIN HCL500 M1 ORAL; +METOPROLOL TART25 MG ORAL; +MORPHINE IR15 MG ORAL; +NOVOLIN R100 UNIT/1 SUBQ; +PANTOPRAZOLE SO40 MG ORAL; +POLYETHYLENE GL17 GM ORAL; +PREDNISONE50 MG ORAL; +RANEXA500 MG ORAL; +TRAZODONE HCL50 MG ORAL; +WARFARIN SODIUM4 MG ORAL; +ZETIA10 MG ORAL; +ZOFRAN4 M3 ORAL; +ZYPREXA2.5 MG ORAL
[2018-06-19 15:57] VITALS: BP 128/80
[2018-06-19 16:00] VITALS: BP 128/80
--- NOTE | 2018-06-19 21:45 | History and Physical Report ---
DATE OF ADMISSION: 06/19/2018 TIME: 1 p.m. CONSULTANTS: 1. Madan Momin M.D. 2. Carlos Mancuso M.D. 3. Geo Jarquin M.D. 4. Ginger Hernandez M.D. 5. Bhupendra Kingston M.D. CHIEF COMPLAINT: Chest pain, agitation, and anxiety. BRIEF HISTORY: This is a 23-year-old male, who lives at home, presents with a history of substernal chest pain, sharp, no radiation. The patient has history of STEMI and CT and also, he was coughing up blood with some GI bleed. The patient admitted to telemetry. Currently slightly anxious in bed, slight general pain. PAST MEDICAL HISTORY: Includes PE, CT, and STEMI. PAST SURGICAL HISTORY: Angio and back surgery. ALLERGIES: Iodine. SOCIAL HISTORY: No smoking. No alcohol. No intravenous drug abuse. FAMILY HISTORY: Noncontributory. PHYSICAL EXAMINATION: GENERAL: Slightly anxious in bed, oriented x3, in no acute distress. VITAL SIGNS: Temperature is 98 and otherwise refused. CARDIOVASCULAR: No murmur. LUNGS: Distant and clear. ABDOMEN: Bowel sounds positive. Nontender. Nondistended. EXTREMITIES: No cyanosis or edema. NEUROLOGIC: The patient moves all extremities, slightly weak. LABORATORY AND DIAGNOSTIC DATA: White count 3.2, hemoglobin and hematocrit 11 with 34, and platelets 256,000. Glucose 128, AST 86, and ALT 157. Troponin 0.00. INR is 1.1 and PTT is 31. D-dimer 0.35. MEDICATIONS: Include Depakote, Ativan, Tylenol 3, colchicine, Lipitor, Zetia, Flexeril, Neurontin, Lopressor, , warfarin, and Protonix. ASSESSMENT: 1. Chest pain. 2. History of ST-elevation myocardial infarction. 3. History of pulmonary embolism. 4. Anemia. 5. Coughing up blood. 6. Gastrointestinal bleed. 7. History of myocardial infarction. 8. Agitation. PLAN: 1. Continue premeds. 2. Troponin q.8 hours x3. 3. EKG in a.m. 4. Pain control. 5. Blood pressure control. 6. Dietary followup. 7. CBC and BMP in the morning. Ramo Fisher D.O. DR: ARIEL JOB#: [id number] CC:
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
== END 2018-06-19 16:30 | disposition left against medical advice (07) ==
LOC: MERGE 16:01 → EMR 16:01
DX: R07.9 Chest pain, unspecified (principal); Z53.20 Procedure and treatment not carried out because of patient's decision for unspecified reasons
CPT/HCPCS: 99283